=== PATIENT | female | born 1970 | race African-American/Black ===

== ENCOUNTER 2017-02-13 21:52 | Emergency (ER) | payer OTHER ==
[~2017-02-13 21:52] MED LIST: ALBUTEROL17 GM; ALBUTEROL17 GM INH; ALPRAZOLAM PO; AMOXICILLIN; AMOXICILLIN500 M1 PO; AUGMENTIN PO; BACTRIM DS TABL1 TAB PO; BENZONATATE PO; CIPRO PO; DARVOCET-N 1001 TAB PO; FLEXERIL PO; HYDROCODONE/APA1 T16 PO; INDOMETHACIN50 MG PO; KEFLEX PO; LORTAB 7.5-5001 TAB PO; MEDI-MECLIZINE25 M1 PO; MEDROL PO; NABUMETONE PO; NAPROXEN PO; PERCOCET5/325; PHENERGAN PO; PROVENTIL INHALER; PROVENTIL17 GM; PYRIDIUM PO; TALWIN NX TABLE1 TAB PO; VICODIN 5/500 T1 TAB PO; VOLTAREN75 MG PO; [UNRECOGNIZED DRUG - OTHER] OU
== END 2017-02-13 23:04 | disposition home or self-care (01) ==
LOC: CED 21:52
DX: G56.02 Carpal tunnel syndrome, left upper limb (principal); J45.909 Unspecified asthma, uncomplicated; F17.200 Nicotine dependence, unspecified, uncomplicated; Z91.018 Allergy to other foods
CPT/HCPCS: 99283

== ENCOUNTER 2017-04-06 04:03 | Emergency (ER) | payer OTHER | END 2017-04-06 07:19 | disposition home or self-care (01) | LOC: CED 04:03 | DX: G56.03 Carpal tunnel syndrome, bilateral upper limbs (principal); Z91.018 Allergy to other foods | CPT/HCPCS: 96372; 99283; J1885 ==